=== PATIENT | male | born 1990 | race Caucasian/White ===

== ENCOUNTER 2019-07-15 06:05 | Emergency (ER) | payer MEDICAID ==
[~2019-07-15] VITALS: Ht 172.7 cm; Wt 59.0 kg
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
--- NOTE | 2019-07-15 06:05 | NUR ---
ZULEYKA ADAMS, PREBOOK. TAKEN TO CHAIR C
[2019-07-15 06:09] VITALS: BP 117/71
[2019-07-15] MEDS ORDERED: IBUPROFEN 800 MG TAB PO ONE (06:20)
--- NOTE | 2019-07-15 06:35 | NUR ---
PT TAKEN TO CT VIA W/C.
--- NOTE | 2019-07-15 06:54 | NUR ---
PT RETURN FROM CT
--- NOTE | 2019-07-15 07:05 | NUR ---
TPt report given to LOUISE ZAMARRIPA. Transfer of care at this time.
--- NOTE | 2019-07-15 07:07 | NUR ---
ASSUMED CARE OF PATIENT. PT APPEARS CALM. ENCOURAGED TO VOID. IN CUSTODY OF [facility].
--- NOTE | 2019-07-15 08:43 | NUR ---
REPORT CALLED TO LOUISE SAMANIEGO AT [facility] ED. ALL QUESTIONS ANSWERED.
--- NOTE | 2019-07-15 08:50 | NUR ---
[facility]A FOR AMBULANCE TRANSPORT TO [facility]--30MINS.
--- NOTE | 2019-07-15 09:26 | NUR ---
[facility] AT BEDSIDE FOR TRANSPORT. REPORT GIVEN TO EMS CREW.
[2019-07-15 09:28] VITALS: BP 123/67
--- NOTE | 2019-07-15 09:30 | NUR ---
Patient to be transferred to [facility]. Is being transferred due to HIGHER LEVEL OF CARE. Receiving facility has accepting physician and available space. ER physician has signed transfer form. Patient or responsible democrat has agreed to transfer and signed form. Patient belongings inventoried and will be sent with patient. Copy of nursing notes, lab reports, EKG, Physicians Orders and X-rays to be sent with patient. Report called to LOUISE SAMANIEGO at receiving facility.
== END 2019-07-15 09:30 | disposition short-term general hospital (02) ==
LOC: MED 06:05
DX: M54.5 Low back pain (principal); Z02.89 Encounter for other administrative examinations
CPT/HCPCS: 72131; 99284

== ENCOUNTER 2019-08-18 17:01 | Emergency (ER) | payer MEDICAID ==
[~2019-08-18] VITALS: Ht 172.7 cm; Wt 63.5 kg
[2019-08-18 17:04] VITALS: BP 111/60
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
--- NOTE | 2019-08-18 17:29 | NUR ---
[facility] [employer] at bedside speaking with pt
[2019-08-18] MEDS ORDERED: HYDROcodone/APAP 5/325 MG 1 TAB TAB PO ONE (17:35)
--- NOTE | 2019-08-18 17:54 | NUR ---
Officer Gulshan with [facility] interviewed pt
--- NOTE | 2019-08-18 18:25 | NUR ---
Pt taken to CT via rmoi.
--- NOTE | 2019-08-18 19:19 | NUR ---
RECEIVED REPORT FROM LOUISE MAURICIO. WILL CONT CARE AT THIS TIME.
[2019-08-18] MEDS ORDERED: BACITRACIN OINT 500 UNITS/GM PKT TP ONE ×2 (19:39→19:40)
[2019-08-18 20:04] VITALS: BP 109/66
--- NOTE | 2019-08-18 20:04 | NUR ---
Patient discharged with v/s stable. Written and verbal after care instructions given and explained. Patient alert, oriented and verbalized understanding of instructions. Ambulatory with steady gait. All questions addressed prior to discharge. ID band removed. Patient advised to follow up with PMD. Rx of NORCO, IBUPROFEN, AND BACITRACIN given. Patient educated on indication of medication including possible reaction and side effects. Opportunity to ask questions provided and answered.
== END 2019-08-18 20:04 | disposition home or self-care (01) ==
LOC: MED 17:01
DX: S01.01XA Laceration without foreign body of scalp, initial encounter (principal); S09.8XXA Other specified injuries of head, initial encounter; F15.10 Other stimulant abuse, uncomplicated; F17.210 Nicotine dependence, cigarettes, uncomplicated; Y04.2XXA Assault by strike against or bumped into by another person, initial encounter; Y93.89 Activity, other specified; Y92.89 Other specified places as the place of occurrence of the external cause; Y99.8 Other external cause status
CPT/HCPCS: 70450; 70486; 72125; 99285

== ENCOUNTER 2019-08-25 12:57 | Emergency (ER) | payer MEDICAID ==
[~2019-08-25] VITALS: Ht 172.7 cm; Wt 63.5 kg
[2019-08-25 13:25] VITALS: BP 121/80
--- NOTE | 2019-08-25 13:27 | NUR ---
WAIT AT LOBBY.
--- NOTE | 2019-08-25 14:26 | NUR ---
PT AMB TO BED Addendum: 08/25/19 at 1446 by [email or web address] AT [facility]
--- NOTE | 2019-08-25 14:44 | NUR ---
Patient discharged with v/s stable. Written and verbal after care instructions given and explained. Patient verbalized understanding. Ambulatory with steady gait. All questions addressed prior to discharge. Advised to follow up with PMD.
== END 2019-08-25 14:44 | disposition home or self-care (01) ==
LOC: MED 12:57
DX: S01.91XD Laceration without foreign body of unspecified part of head, subsequent encounter (principal); R00.0 Tachycardia, unspecified; X58.XXXD Exposure to other specified factors, subsequent encounter
CPT/HCPCS: 99281